=== PATIENT | male | born 2000 | race Caucasian/White ===

== ENCOUNTER 2020-01-28 07:45 | Emergency (ER) | payer MEDICAID ==
--- NOTE | 2020-01-28 08:04 | ED Physician Documentation ---
History of Present Illness - Stated complaint Stated Complaint: SORE THROAT/SOA - Chief complaint Chief Complaint: Heent - History obtained from History obtained from: Patient (4 days of sore throat with body aches and chills. No cough or shortness of breath to speak of.) Review of Systems Constitutional: reports: Fever, Chills, Myalgias, Fatigue Nose: denies: Rhinorrhea / runny nose Respiratory: denies: Cough PD PAST MEDICAL HISTORY - Allergies Allergies/Adverse Reactions: Allergies Allergy/AdvReac Type Severity Reaction Status Date / Time azithromycin Allergy Rash Verified 01/28/20 08:03 [From Zithromax Z-Zeus] PD ED PE NORMAL - Vitals Vital signs reviewed: Yes - General General: Alert and oriented X 3, No acute distress - HEENT HEENT: PERRL, EOMI, Other (Enlarged inflamed tonsils with exudates, no cervical adenopathy.) - Derm Derm: No rash - Neuro Neuro: Alert and oriented X 3, Normal speech Results - Vitals Vitals: Vital Signs - 24 hr 01/28/20 08:00 Temperature 36.6 C Heart Rate 77 Respiratory 12 Rate Blood Pressure 129/84 H O2 Saturation 98 Oxygen O2 Source Room air - Labs Labs: Laboratory Tests 01/28/20 08:00 Group A Strep Rapid POSITIVE H Departure - Departure Disposition: 01 Home, Self Care Clinical Impression: Strep pharyngitis Condition: Good Instructions: ED Strep Pharyngitis Conf Comments: Test was positive for strep today. He received a shot of penicillin which should complete the course. Return if worsening.
[2020-01-28 08:17] LABS: RAPID STREP SCREEN POSITIVE (Negative)
[2020-01-28] MEDS ORDERED: PENICILLIN G BENZATHINE 600,000 UNIT/ML SYRINGE IM STA (08:25)
[2020-01-28 09:18] VITALS: BP 116/57
== END 2020-01-28 09:18 | disposition home or self-care (01) ==
LOC: ED 07:45
DX: J02.0 Streptococcal pharyngitis (principal); B95.0 Streptococcus, group A, as the cause of diseases classified elsewhere
CPT/HCPCS: 87430; 96372; 99283

== ENCOUNTER 2020-11-24 08:15 | Emergency (ER) | payer MEDICAID ==
[2020-11-24 08:47] LABS: RAPID STREP SCREEN Negative (Negative)
--- NOTE | 2020-11-24 09:20 | ED Physician Documentation ---
PD HPI URI - Stated complaint Stated Complaint: SOAR THROAT - Chief complaint Chief Complaint: Heent - History obtained from History obtained from: Patient - History of Present Illness Timing - onset: Today, Last night Timing details: Abrupt onset Associated symptoms: Sore throat, Swollen nodes. No: Fever, Nasal congestion, Dry cough, Productive cough Contributing factors: No: Sick contact, Immunocompromised Similar symptoms before: Diagnosis (has had strep proven tonsillitis several times in past few years, last was Dx in ER here last fall. This feels similar.) Recently seen: Not recently seen Review of Systems Constitutional: denies: Fever Ears: denies: Ear pain Nose: denies: Rhinorrhea / runny nose, Congestion Throat: reports: Sore throat, Swollen tonsils Cardiac: denies: Chest pain / pressure Respiratory: denies: Dyspnea, Cough PD PAST MEDICAL HISTORY - Past Medical History Past Medical History: No Cardiovascular: None Respiratory: None Neuro: None Endocrine/Autoimmune: None GI: None : None HEENT: None Psych: None Musculoskeletal: None Derm: None - Past Surgical History Past Surgical History: Yes HEENT: Tonsil/Adenoidectomy, Other - Present Medications Home Medications: Ambulatory Orders Medication Instructions Recorded Confirmed Amoxicillin 500 mg PO TID #21 cap 11/24/20 dexAMETHasone [Decadron] 4 mg PO DAILY #5 tablet 11/24/20 - Allergies Allergies/Adverse Reactions: Allergies Allergy/AdvReac Type Severity Reaction Status Date / Time azithromycin Allergy Rash Verified 11/24/20 08:18 [From Zithromax Z-Zeus] - Social History Does the pt smoke?: No Smoking Status: Never smoker Does the pt drink ETOH?: Yes Does the pt have substance abuse?: Yes Substance Use and Type: Prescription Pills - Immunizations Immunizations are current?: Yes PD ED PE NORMAL - Vitals Vital signs reviewed: Yes - General General: Alert and oriented X 3, No acute distress, Well developed/nourished - HEENT HEENT: Ears normal, Moist mucous membranes, Dentition benign. No: Pharynx benign (tonsils with swelling and redness with some whitish exudate. No peritonsillar swelling. ) - Neck Neck: Supple, no meningeal sign, Other (positive anterior adenopathy but not too large. ) Results - Vitals Vitals: Vital Signs - 24 hr 11/24/20 11/24/20 08:19 09:29 Temperature 36.4 C L 36.2 C L Heart Rate 62 57 L Respiratory 16 16 Rate Blood Pressure 120/67 117/75 O2 Saturation 99 99 Oxygen O2 Source Room air - Labs Labs: Laboratory Tests 11/24/20 08:25 Group A Strep Rapid Negative PD MEDICAL DECISION MAKING - ED course Complexity details: reviewed old records (had strep positive pharyngitis last fall. ), reviewed results, considered differential (Sore throat for a day with exudate and swelling glands. No fever as yet. History of positive strep test pharyngitis periodically with last episode January 2020. Rapid test negative. Will treat empirically with a Centor score 3 out of 4.), d/w patient Departure - Departure Disposition: Home, Self Care Clinical Impression: Acute pharyngitis Qualifiers: Pharyngitis/tonsillitis etiology: streptococcus Qualified Code(s): J02.0 - Streptococcal pharyngitis Condition: Stable Record reviewed to determine appropriate education?: Yes Instructions: ED Strep Pharyngitis Poss Prescriptions: Amoxicillin 500 mg PO TID #21 cap dexAMETHasone [Decadron] 4 mg PO DAILY #5 tablet Comments: Your rapid strep test is negative but the culture will result in a couple of days. This is fairly suspicious for recurrent strep so we can treat empirically for now with amoxicillin and anti-inflammatories. You can add Benadryl or lidocaine if needed for discomfort. Add Tylenol or ibuprofen if needed for pains. Discharge Date/Time: 11/24/20 09:51
[2020-11-24 09:30] VITALS: BP 117/75
[2020-11-24] MEDS: ACETAMINOPHEN 325 MG TABLET PO STA (09:38)
[2020-11-24] MEDS: AMOXICILLIN 250 MG CAPSULE PO STA (09:38)
[2020-11-24] MEDS: DEXAMETHASONE 10 MG/ML VIAL PO STA (09:39)
[2020-11-24] MEDS: CHERRY SYRUP 10 ML UDC PO ONE (09:39)
[2020-11-24] MEDS: diphenhydrAMINE ELIXIR 25 MG/10 ML UDC PO STA (09:41)
== END 2020-11-24 09:51 | disposition home or self-care (01) ==
LOC: ED 08:15
DX: J02.0 Streptococcal pharyngitis (principal)
CPT/HCPCS: 87070; 87430; 99283; A9270